=== PATIENT | male | born 1945 | race Two or more races ===

== ENCOUNTER 2018-05-02 18:12 | Emergency (ER) | payer MEDICAID, MEDICARE, OTHER ==
[~2018-05-02] VITALS: Ht 157.5 cm; Wt 65.8 kg
[~2018-05-02 18:12] MED LIST: IBUPROFEN600 MG ORAL
[2018-05-02 18:23] VITALS: BP 153/80
[2018-05-02] MEDS ORDERED: UNOBMED (18:27)
--- NOTE | 2018-05-02 19:30 | Emergency Room Report ---
History of Present Illness General Chief Complaint: Pain Source: Patient Present Illness HPI 72-year-old male patient presents ER complaining of right knee pain status post 4 days ago. Denies history of injury or trauma. Reports that he was cutting trees when he began to experience some itching and pain symptoms. reports pain symptoms and increasing that time. Reports taking ibuprofen twice a day for relief of pain symptoms. Denies pain with ambulation. Reports no exposure to allergens. Denies fever, chest pain, shortness breath, abdominal pain, vomiting. denies diabetes. Allergies: Coded Allergies: NO KNOWN ALLERGIES (Unverified Allergy, Unknown, 07/21/15) Patient History Past Medical History: see triage record Reviewed Nursing Documentation: PMH: Agreed; PSxH: Agreed Nursing Documentation-PMH Hx Hypertension: Yes Review of Systems All Other Systems: negative except mentioned in HPI Physical Exam Vital Signs Date Time Temp Pulse Resp B/P (MAP) Pulse Ox O2 Delivery O2 Flow Rate FiO2 05/02/18 18:23 98.6 85 19 153/80 93 Room Air 98.6 Sp02 EP Interpretation: reviewed, normal General Appearance: well appearing, no apparent distress, alert, GCS 15, non- toxic Head: normocephalic, atraumatic ENT: hearing grossly normal, normal pharynx, no angioedema, normal voice, uvula midline, moist mucus membranes Neck: full range of motion Respiratory: lungs clear, normal breath sounds, no rhonchi, no respiratory distress, no accessory muscle use, no wheezing, speaking full sentences Cardiovascular #1: regular rate, rhythm, no edema Cardiovascular #2: 2+ dorsalis pedis (R), 2+ dorsalis pedis (L) Genitourinary: no CVA tenderness Musculoskeletal: back normal, digits/nails normal, gait/station normal, normal range of motion, non-tender, other - negative bulge sign, negative laxity with varus and valgus stress, negative anterior and posterior drawer Neurologic: alert, oriented x3, responsive, motor strength/tone normal, sensory intact Psychiatric: mood/affect normal Skin: rash - erythema and edema from right knee extending distally to right ankle no central clearing, no scaling, no crepitus, no target sign, no open wounds or draining, no fluctuance, does not come to a point, no sloughing of skin, no crepitus Medical Decision Making PA Attestation Dr. Lester is my supervising Physician whom patient management has been discussed with. Diagnostic Impression: Primary Impression: Cellulitis ER Course Pt. presents to the ED c/o knee pain. Ddx considered but are not limited to fracture, sprain, strain, contusion, dislocation. No no swelling of knee, swelling localized to anterior patellar region, negative bulge sign, no fever, nontoxic appearing, low suspicion for septic joint. Vital signs: are WNL, pt. is afebrile. Blood pressure mildly elevated at this time, will continue to monitor. States taking HTN medications as previously instructed. Denies chest pain, shortness of breath, vision changes, does not require acute intervention at ER at this time. Follow with primary care provider discuss further treatment and referral. Advised on low-sodium diet, advised on diet and exercise. Ordered X-ray and pain medication. ER COURSE Provided with pain medication. An X-ray of the right knee shows no acute disease per the preliminary reading. Xray negative, no crepitus, nontoxic appearing, no sloughing of skin, low suspicion for necrotizing fasciitis. Erythema and edema and anterior patella extending to ankle anteriorly, probable cellulitis. Will provide patient with a course of antibiotics in the ER discharge home with antibiotics. Follow-up in 2-3 days for wound check. Return to ER for new or worsening of symptoms including but not limited to fever , intractable vomiting, chest pain, shortness breath, red streaking, worsening of cellulitis. no fever, no history of diabetes, does not require admission for IV antibiotics at this time. Okay for outpatient treatment. ER precautions given. Patient seen and evaluated by Dr. Lester, agrees with assessment and plan, will provide dose of abx in ER and discharge home with abx Rx. Patient instructed on RICE method: rest, ice, compression, elevation. Patient instructed on rest, ice and heat. Patient instructed to be WBAT Followup with primary care provider. Discuss referral to ortho/pain management/ PT as needed. Discuss further imaging with MRI/CT as needed. Upon reexamination patient complaining of chest pain, EKG, CXR to rule out underlying pathology. chest x-ray negative for acute disease per the preliminary reading. EKG no acute ST elevations or arrhythmia, low suspicion for cardiac pathology. Follow-up with for further treatment and evaluation. does not require cardiac workup at this time. On PE, chest is TTP; chest pain likely musculoskeletal in nature, does not require cardiac workup at this time. Patient instructed to take NSAIDs as needed for pain symptoms. pulmonary administration of pain medication, patient states pain symptoms have resolved, no longer complaining of chest pain at this time. Lungs clear to auscultation, no wheezes rhonchi or rales. ER precautions given. DISCHARGE: -Rx provided for Ibuprofen for pain symptoms. -Rx provided for doxycycline. At this time pt. is stable for d/c to home. Patient is resting comfortably, in no acute distress, nontoxic appearing, talking without difficulty. Will provide printed patient care instructions, and any necessary prescriptions. Patient instructed to follow with primary care provider in 3 - 5 days and to request further follow-up as needed. Care plan and follow up instructions have been discussed with the patient prior to discharge. Take medications as directed. Patient questions asked and answered. Patient reports understanding and agreement to treatment plan. ER precautions given, patient instructed to return to ER immediately for any new or worsening of symptoms. - Please note that this Emergency Department Report was dictated using [employer] technology software, occasionally this can lead to erroneous entry secondary to interpretation by the dictation equipment. EKG Diagnostic Results Rate: normal Rhythm: NSR ST Segments: no acute changes ASA given to the pt in ED: No PA Scribe Text Ramírez Jackson PA-C Rhythm Strip Diag. Results EP Interpretation: yes Rate: 78 Rhythm: NSR, no PVC's, no ectopy PA Scribe Venita Jackson PA-C Chest X-Ray Diagnostic Results Chest X-Ray Diagnostic Results : Chest X-Ray Ordered: Yes # of Views/Limited/Complete: 1 View Indication: Chest Pain EP Interpretation: Yes PA Xray: Interpretation reviewed, by supervising MD, and agrees with findings. Interpretation: no consolidation, no effusion, no pneumothorax, no acute cardiopulmonary disease Impression: No acute disease PA Scribe Text Ramírez Jackson PA-C Other X-Ray Diagnostic Results Other X-Ray Diagnostic Results : X-Ray ordered: right knee # of Views/Limited Vs Complete: 3 View Indication: Pain EP Interpretation: Yes PA Xray: Interpretation reviewed, by supervising MD, and agrees with findings. Interpretation: no dislocation, no soft tissue swelling, no fractures, other Impression: No acute disease PA Scribe Text Ramírez Jackson PA-C Last Vital Signs Date Time Temp Pulse Resp B/P (MAP) Pulse Ox O2 Delivery O2 Flow Rate FiO2 05/02/18 19:18 98.6 05/02/18 18:23 85 19 153/80 93 Room Air Disposition: HOME, SELF-CARE Condition: Stable Scripts Ibuprofen* (MOTRIN*) 800 Mg Tablet 800 MG ORAL Q8H, #30 TAB 0 Refills Prov: Adair Jackson 05/02/18 Doxycycline Hyclate* (VIBRAMYCIN*) 100 Mg Capsule 100 MG ORAL EVERY 12 HOURS for 10 Days, #20 CAP 0 Refills Prov: Adair Jackson 05/02/18 Referrals: [facility],REFERRING (PCP) Patient Instructions: Cellulitis Additional Instructions: Patient instructed to follow up with primary care provider and discuss further referral at that time. Patient instructed on elevation. Apply cool compresses. Patient instructed to WBAT. Take medications as directed. Patient questions asked and answered. ER precautions given, patient instructed to return to ER immediately for any new or worsening of symptoms including but not limited to worsening of redness and swelling, red streaking, loss of sensation, worsening of pain, fever, intractable vomiting, chest pain, SOB. Adair Jackson May 02, 2018 19:30
[2018-05-02] MEDS ORDERED: IBUPROFEN800 MG ORAL (20:13)
[2018-05-02] MEDS ORDERED: VIBRAMYCIN100 MG ORAL (20:13)
[2018-05-02] MEDS ORDERED: Lidocaine 1% MPF 10mg/ml 5ml INJ ONE (20:15)
[2018-05-02 20:35] VITALS: BP 147/88
--- NOTE | 2018-05-03 08:37 | Diagnostic Imaging Report ---
Indication: Knee pain Technique: 3 views of the right knee Comparison: None Findings: No acute fractures. No dislocations. The joint spaces are preserved. No suprapatellar effusion Impression: Negative
--- NOTE | 2018-05-03 08:59 | Diagnostic Imaging Report ---
Indication: Chest pain Technique: One view of the chest Comparison: none Findings: Lungs and pleural spaces are clear. Heart size is normal. Aorta is somewhat tortuous Impression: No acute process
--- NOTE | 2018-05-04 17:00 | Cardiology Report ---
APPROVED REPORT EKG Measurement Heart [id number] Normal sinus rhythm Normal ECG
== END 2018-05-02 20:38 | disposition home or self-care (01) ==
LOC: EMR 19:05
DX: L03.115 Cellulitis of right lower limb (principal); I10 Essential (primary) hypertension
CPT/HCPCS: 71045; 73562; 93005; 96372; 99284; J0696

== ENCOUNTER 2019-07-09 08:25 | Emergency (ER) | payer MEDICAID, MEDICARE ==
[~2019-07-09] VITALS: Ht 154.9 cm; Wt 60.8 kg
[~2019-07-09 08:25] MED LIST changes: +IBUPROFEN800 MG ORAL; +UNOBMED; +VIBRAMYCIN100 MG ORAL
[2019-07-09] MEDS ORDERED: ASPIR 8181 MG ORAL (08:41)
[2019-07-09] MEDS ORDERED: AMLODIPINE BESY10 MG ORAL (08:41)
[2019-07-09] MEDS ORDERED: DAILY VITE1 EACH ORAL (08:41)
[2019-07-09] MEDS ORDERED: CHLORTHALIDONE25 MG ORAL (08:41)
--- NOTE | 2019-07-09 08:48 | NUR ---
ED Nurse Note: Pt walked in from home after having dark red blood in stool x 2 days with abd pain. Pt is AAOx4, vss, with no acute distress. Pt is with family.
[2019-07-09 08:50] VITALS: BP 136/76
[2019-07-09] MEDS ORDERED: Omnipaque-300 100ml vial INJ PRN (09:00)
--- NOTE | 2019-07-09 09:00 | NUR ---
ED Nurse Note: 18g IV inserted, blood draw and sent to lab.
--- NOTE | 2019-07-09 09:18 | NUR ---
ED Nurse Note: X-ray complete
[2019-07-09 09:24] LABS: HEMATOCRIT 48.2 % (42.0-52.0); HEMOGLOBIN 15.9 G/DL (14.2-18.0); MEAN CORPUSCULAR VOLUME 87 FL (80-99); PLATELET COUNT 244 K/UL (150-450); RED BLOOD COUNT 5.56 M/UL (4.70-6.10); WHITE BLOOD COUNT 8.6 K/UL (4.8-10.8)
[2019-07-09 09:36] LABS: APPEARANCE,URINE CLEAR; BILIRUBIN, URINE NEGATIVE (NEGATIVE); COLOR,URINE PALE YELLOW; GLUCOSE, URINE (UA) NEGATIVE (NEGATIVE); KETONES,URINE NEGATIVE (NEGATIVE); LEUKOCYTE ESTERASE ,URINE NEGATIVE (NEGATIVE); NITRITE,URINE NEGATIVE (NEGATIVE); PH,URINE 7 (4.5-8.0); PROTEIN,URINE NEGATIVE (NEGATIVE); UROBILINOGEN,URINE NORMAL MG/DL (0.0-1.0)
[2019-07-09 09:36] LABS: INR 1.1 (0.9-1.1)
--- NOTE | 2019-07-09 09:48 | Emergency Room Report ---
History of Present Illness General Chief Complaint: Gastrointestinal Bleed Source: Patient, Family Member Present Illness HPI 74-year-old male presents ED for evaluation. Daughter at bedside states that patient's been experiencing abdominal pain and blood in stool for the last 2 days. Pain is lower, 5 out of 10, dull, nonradiating. Denies nausea or vomiting. Denies taking blood thinners. No other aggravating relieving factors. Denies any other associated symptoms Allergies: Coded Allergies: NO KNOWN ALLERGIES (Unverified Allergy, Unknown, 07/21/15) Patient History Past Medical History: HTN Past Surgical History: none Pertinent Family History: none Social History: Denies: smoking, alcohol use, drug use Immunizations: UTD Reviewed Nursing Documentation: PMH: Agreed; PSxH: Agreed Nursing Documentation-PMH Past Medical History: No History, Except For Hx Cardiac Problems: Yes Hx Hypertension: Yes Review of Systems All Other Systems: negative except mentioned in HPI Physical Exam Vital Signs Date Time Temp Pulse Resp B/P (MAP) Pulse Ox O2 Delivery O2 Flow Rate FiO2 07/09/19 08:32 98.2 68 16 150/82 (104) 98 Room Air Sp02 EP Interpretation: reviewed, normal General Appearance: no apparent distress, alert, GCS 15, non-toxic Head: normocephalic, atraumatic Eyes: bilateral eye normal inspection, bilateral eye PERRL ENT: hearing grossly normal, normal pharynx, no angioedema, normal voice Neck: full range of motion, supple/symm/no masses Respiratory: chest non-tender, lungs clear, normal breath sounds, speaking full sentences Cardiovascular #1: regular rate, rhythm, no edema Cardiovascular #2: 2+ carotid (R), 2+ carotid (L), 2+ radial (R), 2+ radial (L) , 2+ dorsalis pedis (R), 2+ dorsalis pedis (L) Gastrointestinal: normal bowel sounds, soft, non-distended, no guarding, no rebound, tenderness Rectal: blood streaked stool, hemorrhoids, tenderness Genitourinary: normal inspection, no CVA tenderness Musculoskeletal: back normal, gait/station normal, normal range of motion, non- tender Neurologic: alert, oriented x3, responsive, motor strength/tone normal, sensory intact, speech normal Psychiatric: judgement/insight normal, memory normal, mood/affect normal, no suicidal/homicidal ideation Reflexes: 3+ bicep (R), 3+ bicep (L), 3+ tricep (R), 3+ tricep (L), 3+ knee (R) , 3+ knee (L) Lymphatic: no adenopathy Medical Decision Making Diagnostic Impression: Primary Impression: Constipation Qualified Codes: K59.00 - Constipation, unspecified Additional Impressions: Hemorrhoids Qualified Codes: K64.9 - Unspecified hemorrhoids Diverticulosis ER Course Hospital Course 74-year-old M presents to ED with abdominal pain, blood in stool Differential diagnosis includes- hemorrhoids, SBO, constipation Clinical course Patient placed on stretcher. After initial history and physical I ordered labs , IV fluids, KUB, and CT A/P Labs - no leukocytosis, electrolytes ok, LFTs normal KUB - copious stool noted CT A/P - diverticulosis, no diverticulitis On rectal exam there was some gross blood noted, fullness consistent with internal hemorrhoid. I discussed findings with patient. Will discharge home with stool softener, suppository. Safe for discharge. I will provide referrals I feel this is a highly complex case requiring extensive working including EKG/ Rhythm strip, Xray/CT/US, Blood/urine lab work, repeat exams while in ED, and administration of strong opiates/narcotics for pain control, admission to hospital or close patient follow up. Diagnosis - constipation, diverticulosis, hemorrhoids Stable and discharged to home with Rx Samantha-trey Colace. instructed on high-fiber diet. Followup with PMD. Return to ED if symptoms recur or worsen Labs Test 07/09/19 09:00 07/09/19 09:25 07/09/19 09:39 White Blood Count 8.6 K/UL (4.8-10.8) Red Blood Count 5.56 M/UL (4.70-6.10) Hemoglobin 15.9 G/DL (14.2-18.0) Hematocrit 48.2 % (42.0-52.0) Mean Corpuscular Volume 87 FL (80-99) Mean Corpuscular Hemoglobin 28.6 PG (27.0-31.0) Mean Corpuscular Hemoglobin Concent 33.0 G/DL (32.0-36.0) Red Cell Distribution Width 12.0 % (11.6-14.8) Platelet Count 244 K/UL (150-450) Mean Platelet Volume 9.0 FL (6.5-10.1) Neutrophils (%) (Auto) % (45.0-75.0) Lymphocytes (%) (Auto) % (20.0-45.0) Monocytes (%) (Auto) % (1.0-10.0) Eosinophils (%) (Auto) % (0.0-3.0) Basophils (%) (Auto) % (0.0-2.0) Differential Total Cells Counted 100 Neutrophils % (Manual) 53 % (45-75) Lymphocytes % (Manual) 19 % (20-45) Monocytes % (Manual) 5 % (1-10) Eosinophils % (Manual) 23 % (0-3) Basophils % (Manual) 0 % (0-2) Band Neutrophils 0 % (0-8) Platelet Estimate Adequate Platelet Morphology Normal Prothrombin Time 11.2 SEC (9.30-11.50) Prothromb Time International Ratio 1.1 (0.9-1.1) Activated Partial Thromboplast Time 36 SEC (23-33) Urine Color Pale yellow Urine Appearance Clear Urine pH 7 (4.5-8.0) Urine Specific [place] 1.005 (1.005-1.035) Urine Protein Negative (NEGATIVE) Urine Glucose (UA) Negative (NEGATIVE) Urine Ketones Negative (NEGATIVE) Urine Blood Negative (NEGATIVE) Urine Nitrite Negative (NEGATIVE) Urine Bilirubin Negative (NEGATIVE) Urine Urobilinogen Normal MG/DL (0.0-1.0) Urine Leukocyte Esterase Negative (NEGATIVE) Sodium Level 137 MMOL/L (136-145) Potassium Level 3.5 MMOL/L (3.5-5.1) Chloride Level 100 MMOL/L (98-107) Carbon Dioxide Level 28 MMOL/L (21-32) Anion Gap 9 mmol/L (5-15) Blood Urea Nitrogen 17 mg/dL (7-18) Creatinine 0.9 MG/DL (0.55-1.30) Estimat Glomerular Filtration Rate mL/min (>60) Glucose Level 95 MG/DL (74-106) Calcium Level 9.1 MG/DL (8.5-10.1) Total Bilirubin 0.4 MG/DL (0.2-1.0) Aspartate Amino Transf (AST/SGOT) 21 U/L (15-37) Alanine Aminotransferase (ALT/SGPT) 32 U/L (12-78) Alkaline Phosphatase 72 U/L (46-116) Total Protein 7.4 G/DL (6.4-8.2) Albumin 3.9 G/DL (3.4-5.0) Globulin 3.5 g/dL Albumin/Globulin Ratio 1.1 (1.0-2.7) Lipase 145 U/L (73-393) Other X-Ray Diagnostic Results Other X-Ray Diagnostic Results : X-Ray ordered: KUB # of Views/Limited Vs Complete: 1 View Indication: Pain EP Interpretation: Yes Interpretation: nonspecific bowel gas, no sbo, other - fecal impaction noted Impression: Other - constipation Electronically Signed by: Electronically signed by Roldan Moon MD CT/MRI/US Diagnostic Results CT/MRI/US Diagnostic Results : Imaging Test Ordered: CT A/P Impression diverticulosis, no diverticulitis. fecal impaction Last Vital Signs Date Time Temp Pulse Resp B/P (MAP) Pulse Ox O2 Delivery O2 Flow Rate FiO2 07/09/19 08:50 98.6 65 17 136/76 97 Room Air Status: improved Disposition: HOME, SELF-CARE Condition: Stable Scripts Hydrocortisone Acetate* (ANUSOL-HC*) 25 Mg Supp.rect 1 SUPP RECTAL TWICE A DAY for 7 Days, SUPP Prov: Roldan Moon MD 07/09/19 Docusate Sodium* (COLACE*) 100 Mg Capsule 100 MG ORAL THREE TIMES A DAY, #30 CAP Prov: Roldan Moon MD 07/09/19 Referrals: NON PHYSICIAN (PCP) Roldan Moon MD Jul 09, 2019 09:48
[2019-07-09 09:58] VITALS: BP 144/77
[2019-07-09 10:01] LABS: ANION GAP 9 mmol/L (5-15); BLOOD UREA NITROGEN 17 mg/dL (7-18); CALCIUM 9.1 MG/DL (8.5-10.1); CARBON DIOXIDE 28 MMOL/L (21-32); CHLORIDE 100 MMOL/L (98-107); CREATININE 0.9 MG/DL (0.55-1.30); POTASSIUM 3.5 MMOL/L (3.5-5.1); SODIUM 137 MMOL/L (136-145)
[2019-07-09 10:05] LABS: ALANINE AMINOTRANSFERASE 32 U/L (12-78); ALBUMIN 3.9 G/DL (3.4-5.0); ALBUMIN/GLOBULIN RATIO 1.1 (1.0-2.7); ALKALINE PHOSPHATASE 72 U/L (46-116); ASPARTATE AMINO TRANSFERASE 21 U/L (15-37); BILIRUBIN,TOTAL 0.4 MG/DL (0.2-1.0)
--- NOTE | 2019-07-09 10:21 | NUR ---
ED Nurse Note: Imaging called to remind them of procedure.
--- NOTE | 2019-07-09 10:35 | NUR ---
ED Nurse Note: Pt with tech at CT w/contrast in stable condition.
--- NOTE | 2019-07-09 10:53 | NUR ---
Mara crespo in [facility] - 07/09/19 at 1055 by ANEL pt returned from CT, VSS, with no acute distress. pt transfered with no minimal assistance.
--- NOTE | 2019-07-09 10:55 | NUR ---
ED Nurse Note: Pt returned from CT, VSS with no acute distress. Pt transfered with minimal assistance.
[2019-07-09] MEDS ORDERED: COLACE100 MG ORAL (11:37)
[2019-07-09] MEDS ORDERED: ANUSOL-HC25 MG RECTAL (11:37)
--- NOTE | 2019-07-09 11:43 | Diagnostic Imaging Report ---
Indication: Abdominal pain Comparison: None Single view of the abdomen obtained Findings: Bowel gas pattern is nonspecific. No mass, ectopic calcifications, or abnormal gas collections are identified. The bones are osteopenic. Impression: No acute findings
--- NOTE | 2019-07-09 11:43 | Diagnostic Imaging Report ---
Indication: Abdominal pain Technique: Continuous helical transaxial imaging of the abdomen and pelvis was obtained from the lung bases to the pubic symphysis during intravenous contrast administration. Coronal 2-D reformats were also obtained. Study obtained in a Siemens sensation [address] Automatic Exposure Control was utilized. Total Dose length Product (DLP): [address] Dose Index Volume (CTDIvol): 30 mGy Comparison: None Findings: Lung bases are clear. There are bilateral renal cysts. There are hypodensities in the liver likely small cysts. The gallbladder, spleen and pancreas appear unremarkable. There is no adrenal mass. There is no hydronephrosis, free fluid or free air. There are diverticula throughout the colon especially in the sigmoid region. There is no evidence of acute diverticulitis. Appendix is normal. The urinary bladder is unremarkable. There is a small left inguinal hernia containing fat. IMPRESSION: No acute findings. Diverticulosis of the colon. No definite diverticulitis. Atherosclerotic vascular disease. Other incidental findings as The CT scanner at [facility] is accredited by the [employer] and the scans are performed using dose optimization techniques as appropriate to a performed exam including Automatic Exposure control.
[2019-07-09 11:51] VITALS: BP 144/77
--- NOTE | 2019-07-09 11:51 | NUR ---
ED Nurse Note: Pt cleared by health care Provider for discharge. DC instructions/prescription was given and explained to pt and verbalized understanding of teachings. All medical deviecs such as ID band removed. Pt is AAO x4, ambulatory, VSS, left with all personal belongings and accompanied by family.
== END 2019-07-09 11:51 | disposition home or self-care (01) ==
LOC: EMR 09:36
DX: K59.00 Constipation, unspecified (principal); K64.9 Unspecified hemorrhoids; K57.90 Diverticulosis of intestine, part unspecified, without perforation or abscess without bleeding; I10 Essential (primary) hypertension
CPT/HCPCS: 36415; 74018; 74177; 80053; 81003; 83690; 85007; 85025; 85610; 85730; 99284; Q9967